=== PATIENT | female | born 1985 | race African-American/Black ===

== ENCOUNTER 2022-05-28 14:45 | Outpatient (CLI) | payer SELFPAY ==
[~2022-05-28] VITALS: Ht 165.1 cm; Wt 86.8 kg
--- NOTE | 2022-05-28 14:55 | NUR ---
1455 - PATIENT ARRIVED TO UNIT VIA WHEELCHAIR ACCOMPANIED BY [facility]. PATIENT REPORTS STRONG CONTRACTIONS STARTING AT 1300. PATIENT ALSO REPORTS BLOODY SHOW BUT DENIES LEAKING OF FLUID. PATIENT STATES SHE [place] THE AREA A FEW DAYS AGO AND HAS NOT ESTABLISHED OB HERE YET. PATIENT REPORTS HER LAST APPOINTMENT WITH PREVIOUS PROVIDER WAS TWO WEEKS AGO. 1456 - PLAN OF CARE REVIEWED AND QUESTIONS ANSWERED. 1457 - SVE PERFORMED BY BING TIJERINA. 0- AND HIGH. 1458 - PATIENT ON MONITOR. CARE ONGOING.
[2022-05-28 15:00] VITALS: BP 120/72; PULSE 89
[2022-05-28] MEDS ORDERED: NATURAL IRON65 MG (15:04)
[2022-05-28] MEDS ORDERED: PRENATAL TABLET PO (15:05)
[2022-05-28 15:30] VITALS: PULSE 79; TEMP 98.4
--- NOTE | 2022-05-28 15:42 | NUR ---
Iv start to right forearm. Fluids of lactated ringers iv started as ordered.
[2022-05-28 16:00] VITALS: BP 111/64; PULSE 83
--- NOTE | 2022-05-28 16:00 | NUR ---
Ambulates to the bathroom, tolerates well. States feeling better. Voids moderate amount of yellow urine. Ua obtained and sent to lab.
[2022-05-28 16:10] LABS: COLLECTION METHOD CLEAN CATCH
[2022-05-28 16:30] VITALS: PULSE 85
[2022-05-28 16:34] LABS: SQUAMOUS EPITHELIAL 0-2 /hpf (0-10); URINE BACTERIA Rare /hpf (NONE SEEN); URINE RBC 0-2 /hpf (0-2); URINE WBC 0-2 /hpf (0-2)
[2022-05-28 16:36] LABS: URINE APPEARANCE Clear (CLEAR/HAZY); URINE COLOR Yellow (YELLOW)
[2022-05-28 16:37] LABS: URINE BLOOD Negative (NEGATIVE); URINE GLUCOSE Negative (NEGATIVE); URINE KETONE Negative (NEGATIVE); URINE NITRATE Negative (NEGATIVE); URINE PROTEIN(semi-quant) Negative (NEGATIVE); URINE UROBILINOGEN 0.2 E.U/dL (0.2-1.0)
[2022-05-28 16:43] LABS: TRICYCLIC ANTIDEPRESS URINE NEGATIVE
--- NOTE | 2022-05-28 16:50 | NUR ---
Discharge instructions given, verbalizes understanding. Phone call made to [facility] to come pick[facility] feeder patient.
== END 2022-05-28 17:15 | disposition home or self-care (01) ==
LOC: LDRO 14:45
PROVIDERS: Obstetrics & Gynecology
DX: Z34.93 Encounter for supervision of normal pregnancy, unspecified, third trimester (principal); Z3A.34 34 weeks gestation of pregnancy
CPT/HCPCS: J7120

== ENCOUNTER 2022-06-19 15:03 | Outpatient (CLI) | payer SELFPAY ==
[~2022-06-19 15:03] MED LIST: NATURAL IRON65 MG; PRENATAL TABLET PO
--- NOTE | 2022-06-19 15:20 | NUR ---
Pt arrived on unit via wheelchair with concerns for contractions every "couple minutes" since this afternoon. Pt denies any leaking of fluid or vaginal bleeding and reports normal movement. EFM and toco monitors started. Vital signs WNL. SVE by this RN FT50/-3 and a negative amnio-trace. Dr. Lomax notified. See physician notification for details.
[2022-06-19 16:20] VITALS: BP 128/80; PULSE 95; TEMP 97.9
--- NOTE | 2022-06-19 16:40 | NUR ---
SVE by this RN with no change. Dr. Lomax notified. See physician notification for details.
--- NOTE | 2022-06-19 16:45 | NUR ---
Discharge instructions reviewed with pt. Assisted pt with communication and coordination of transportation back to [facility].
== END 2022-06-19 16:45 | disposition home or self-care (01) ==
LOC: LDRO 15:03
DX: O47.9 False labor, unspecified (principal); Z3A.00 Weeks of gestation of pregnancy not specified

== ENCOUNTER 2022-06-26 17:13 | Outpatient (CLI) | payer SELFPAY ==
[~2022-06-26] VITALS: Ht 165.1 cm; Wt 90.9 kg
[2022-06-26 18:00] VITALS: BP 139/92; PULSE 97; TEMP 97.9
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
--- NOTE | 2022-06-26 18:10 | NUR ---
EFM TRACING INTERMITTENTLY DIFFICULT INTERPRET - RN TO BEDSIDE TO ADJUST MONITOR AND PATIENT FOUND TO BE MOVING STRAPS, TOCO AND DOPPLER AROUND ON HER BELLY. PATIENT INSTRUCTED TO NOT MOVE MONITORING EQUIPMENT. CARE ONGOING.
[2022-06-26 18:30] VITALS: PULSE 79
--- NOTE | 2022-06-26 19:00 | NUR ---
1830 - Discharge instructions reviewed with patient, verbalized understanding. Pt reports needing [facility] but does not have a phone. This RN called long-term and spoke with Ashvin, states that a mail truck driver will arrive in about 30 minutes to return patient to [facility]. 190 - Pt seen ambulating off unit with belongings.
== END 2022-06-26 19:00 | disposition home or self-care (01) ==
LOC: LDRO 17:13
DX: O09.93 Supervision of high risk pregnancy, unspecified, third trimester (principal); Z3A.38 38 weeks gestation of pregnancy

== ENCOUNTER 2022-07-08 23:45 | Inpatient (IN) | payer MEDICAID ==
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
--- NOTE | 2022-07-08 23:50 | NUR ---
To unit via EMS. Pt living at [facility]. Pt reports contractions "for 6 days but those were just [place] contractions. These really hurt since 2199. I feel the baby down in my crotch. This is my 6th baby and it never hurt like this. i always had the bulb put in" Pt anxious, crying, moaning with contractions. Points to lower abd as location of pain. SVE as noted. Deep breathing coached, emotional support given. Ableto relax and slow breathing down with much encouragement.
[2022-07-09] VITALS (34 sets, daily range): BP systolic 104–134; BP diastolic 54–83; PULSE 71–107; TEMP 97.1–98.9
[2022-07-09 00:48] LABS: TRICYCLIC ANTIDEPRESS URINE NEGATIVE
[2022-07-09 01:20] LABS: COLLECTION METHOD CLEAN CATCH
[2022-07-09 01:40] LABS: PH 6.5 (5.0-8.5); SQUAMOUS EPITHELIAL 0-2 /hpf (0-10); URINE APPEARANCE Clear (CLEAR/HAZY); URINE BACTERIA None Seen /hpf (NONE SEEN); URINE COLOR Straw (YELLOW); URINE GLUCOSE Negative (NEGATIVE); URINE KETONE Negative (NEGATIVE); URINE PROTEIN(semi-quant) Negative (NEGATIVE); URINE RBC 0-2 /hpf (0-2); URINE WBC None Seen /hpf (0-2)
[2022-07-09 01:41] LABS: URINE BLOOD 2+ (NEGATIVE); URINE NITRATE Negative (NEGATIVE); URINE UROBILINOGEN 0.2 E.U/dL (0.2-1.0)
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
[2022-07-09 02:54] LABS: BASO % 0.3 % (0.0-2.0); EOS # 0.1 K/mm3 (0.0-0.7); EOS % 1.3 % (0.0-4.0); GRAN # 4.8 K/mm3 (1.4-6.5); HEMOGLOBIN 12.1 g/dl (12.5-16.0); LYMPH # 2.1 K/mm3 (1.2-3.4); MEAN CELL VOLUME 74 fl (80.0-100.0); MEAN CORPUSCULAR HEMOGLOBIN 25 pg (27-31); MEAN CORPUSCULAR HGB CONC 34 g/dl (33.0-37.0); MONO # 0.6 K/mm3 (0.1-0.6); MONO % 7.2 % (1.7-9.3); PLATELET COUNT 199 K/mm3 (130-400); RED BLOOD COUNT 4.84 M/mm3 (4.10-5.30); REDCELL DISTRIBUTION WIDTH-CV 19.4 % (11.5-14.5)
[2022-07-09 02:55] LABS: HEMATOCRIT 35.9 % (37.0-47.0)
[2022-07-09 03:00] LABS: BILIRUBIN,TOTAL 0.4 mg/dL (0.2-1.2); CREATININE, serum 0.86 mg/dL (0.57-1.11); POTASSIUM 4.6 mmol/L (3.5-4.5); TOTAL PROTEIN 7.3 gm/dL (6.2-8.1)
--- NOTE | 2022-07-09 03:32 | NUR ---
HAL HENSON HERE TO PLACE EPIDURAL. PT TO SITTING POSITION. PT TOLERATED PROCEDURE WELL. TEST DOSE DONE.
--- NOTE | 2022-07-09 11:40 | NUR ---
1142- PATIENT COMPLETE. NOTIFIED. 1145- IN PATIENTS ROOM. PREPARING FOR DELIVERY. 1150- PATIENT STARTS PUSHING WITH CONTRACTIONS. 1156- SPONTANEOUS DELIVERY OF BABY BOY BY . 1200- SPONTANEOUS DELIVEYR OF PLACENTA BY . PITOCIN STARTED AT 333CCs PER HOUR ORDERED AND PER PROTOCOL.
--- NOTE | 2022-07-09 13:30 | NUR ---
1330- PATIENT COMPLAINS OF NAUSEA. GIVEN EMESIS BASIN. PATIENT VOMITS A SMALL AMOUNT INTO BASIN. 1350- ZOFRAN GIVEN PER ORDER FOR NAUSEA AND VOMITING.
[2022-07-10 03:30] VITALS: BP 132/70; PULSE 82
[2022-07-10 07:08] VITALS: BP 115/72; PULSE 83; TEMP 97.9
[2022-07-10 08:25] VITALS: BP 139/49; PULSE 54; TEMP 97.5
--- NOTE | 2022-07-10 09:35 | NUR ---
Initial visit; Parents resting, Traffic And Transport Planner left card of congratulations and God's blessings for the of their son along with information regarding the availability of spiritual care at [facility].
[2022-07-10] MEDS ORDERED: IBU800 M1 PO (10:01)
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
[2022-07-10 16:52] VITALS: BP 131/85; PULSE 93; TEMP 98.3
[2022-07-10 20:45] VITALS: BP 115/68; PULSE 87; TEMP 98.1
--- NOTE | 2022-07-11 09:13 | NUR ---
THIS RN IN ROOM TO DO VITALS AT THIS TIME. PATIENT SLEEPING AND WAKES UP TO TELL ME NOT TO DO VITALS ON HER BABY. THIS RN INSTRUCTS HER THAT IT IS MY JOB TO CHECK ON BABY AND TO ENSURE HE IS HEALTHY. PATIENT YELLS AT THIS RN TO STOP TALKING AND TO NOT WAKE HER BABY. THIS RN EXPLAINS TO MOTHER THAT IT IS MY RESPONSIBILITY TO ENSURE BABY VITALS ARE STABLE. PATIENT YELLS "STOP FUCKING TALKING TO ME." PATIENT TELLS THIS RN TO LEAVE ROOM. AT THIS TIME RN FINDS IN CRIB WITH BLANKET LAID OVER CRIB.
--- NOTE | 2022-07-11 09:16 | NUR ---
0916 THIS RN ASKS PT IF A SET OF VITALS MAY BE PERFORMED ON HER. PT IGNORES THIS RN. PATIENT CURRENTLY WORKING ON CERTIFICATE. THIS RN ASKS PATIENT IF SHE WOULD LIKE HER PAIN MEDS. PT IGNORES RN. THEN PATIENT SAYS IN A WILSON VOICE "I NEED MY PAIN MEDS."
--- NOTE | 2022-07-11 09:30 | NUR ---
PT REFUSES VITALS SIGNS THIS AM.
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
--- NOTE | 2022-07-11 11:55 | NUR ---
1115 DISCHARGE INFORMATION PROVIDED AT THIS TIME. PT WITH NO QUESTIONS. PT AMBULATED OUT TO ER. THIS RN ASSISTED MOTHER AND INFANT OUT TO RIDE. ISAIAS FROM [facility] AT ER TO TAKE PATIENT TO [facility]F-WAY. THIS RN VERIFIED INFANT STRAPS SECURE AND REAR FACING CARSEAT BEFORE DEPARTURE.
--- NOTE | 2022-07-11 15:54 | NUR ---
hand bindery assembly worker confirmed that patient is a resident of [facility] in [place]. Their worker picked up patient and baby from the hospital. Worker met with nursing and Dr Gresham and conveyed the above information.
== END 2022-07-11 11:15 | disposition home or self-care (01) | DRG 807 ==
LOC: LDRO 23:45 → OB 07-09 01:27 → LDR 07-09 01:27 → OB 07-09 22:58
PROVIDERS: ADMIT Obstetrics & Gynecology
PROC: 10E0XZZ Delivery of Products of Conception, External Approach (ICD-10-PCS; principal; 2022-07-09)
PROC: 10907ZC Drainage of Amniotic Fluid, Therapeutic from Products of Conception, Via Natural or Artificial Opening (ICD-10-PCS; 2022-07-09)
DX: O48.0 Post-term pregnancy (principal); Z37.0 Single live birth; Z3A.40 40 weeks gestation of pregnancy; O99.344 Other mental disorders complicating childbirth; F32.A Depression, unspecified; K21.9 Gastro-esophageal reflux disease without esophagitis; O99.62 Diseases of the digestive system complicating childbirth; O99.02 Anemia complicating childbirth; D64.9 Anemia, unspecified; O99.824 Streptococcus B carrier state complicating childbirth; Z53.29 Procedure and treatment not carried out because of patient's decision for other reasons
CPT/HCPCS: J2405; J2540; J2590; J7120